=== PATIENT | female | born 1945 | race Caucasian/White ===

== ENCOUNTER → 2024-02-08 13:54 | Outpatient (REF) | payer MEDICARE, SELFPAY | LOC: HWRAD 13:54 | PROVIDERS: ATTENDING PHYSICIAN Internal Medicine Nephrology; FAMILY PHYSICIAN Nurse Practitioner Gerontology | DX: N13.30 Unspecified hydronephrosis (principal) | CPT/HCPCS: 74177; Q9967 ==